=== PATIENT | female | born 1965 | race Caucasian/White ===

== ENCOUNTER → 2019-09-08 11:23 | Outpatient (CLI) | payer MEDICARE, SELFPAY ==
--- NOTE | 2019-09-08 11:36 | RAD_ITS ---
STUDY: X-RAY - CERVICAL SPINE REASON FOR EXAM: Female, 54 years old. Note pain radiating to bilateral shoulders, postoperative. TECHNIQUE: 4 view(s) of the cervical spine were obtained. COMPARISON: None FINDINGS: There are degenerative changes of the anterior atlantoaxial articulation. Normal odontoid process. The patient is status post anterior fusion from C5 to C7 with metallic disc prosthesis at C5-C6 and C6-C7. There is straightening of the normal cervical lordosis. There is multi-level endplate spondylosis. There is narrowing of disc height at C5-C6. The soft tissue structures are unremarkable. There is no demonstrated fracture of the cervical spine. RAD/Cerv Spine 2 or 3 Views IMPRESSION: Status post anterior fusion from C5 to C7 with underlying degenerative disease. No acute fracture or subluxation. Electronically Signed: Barbie Mason MD at 2:00 EST , Service support ,
--- NOTE | 2019-09-08 11:36 | RAD_ITS ---
STUDY: X-RAY - LUMBAR SPINE REASON FOR EXAM: Female, 54 years old. Back pain. TECHNIQUE: 2 view(s) of the lumbar spine were obtained. COMPARISON: 08/29/2015. FINDINGS: Normal lumbar lordosis. There is minimal scoliosis, convexity to the right versus tilted positioning. There is a normal alignment of the vertebrae. There is multilevel endplate spondylosis of the lumbar vertebrae. There is multi-level degenerative disc disease with multi-level disc space narrowing. There is no demonstrated fracture. Facet hypertrophic changes, more significant from L4 to S1. The soft tissue structures are unremarkable. RAD/Lumbar Spine 2 or 3 Views IMPRESSION: Spondylosis/degenerative disease with no acute fracture or spondylolisthesis. Electronically Signed: Barbie Mason MD at 2:01 EST , Service support ,
== END ==
PROVIDERS: Family Provider Family Medicine; PCP Family Medicine; Referring Provider Anesthesiology Pain Medicine; Visit Provider Anesthesiology Pain Medicine
DX: M54.2 Cervicalgia (principal); M54.9 Dorsalgia, unspecified
CPT/HCPCS: 72040; 72100